=== PATIENT | male | born 1975 | race Caucasian/White ===

== ENCOUNTER 2016-10-07 17:37 | Emergency (ER) | payer MEDICAID, MEDICARE ==
[2016-10-07] MEDS ORDERED: Lidocaine 1% 20 ML MDV INJECT ONE ×2 (17:46)
[2016-10-07] MEDS ORDERED: Diphtheria,Pertussis(Acell),Tetanus Vaccine 0.5 ML Syringe IM ONE (17:46)
[2016-10-07] MEDS ORDERED: Bacitracin Oint 1 GM U/D Packet TOP ONE ×2 (17:46→17:47)
--- NOTE | 2016-10-07 17:48 | EDM.PDOC ---
ED HPI GENERAL MEDICAL PROBLEM - General Chief Complaint: Upper Extremity Injury/Pain Stated Complaint: LACERATION MIDDLE FINGER /RT HAND Time Seen by Provider: 10/07/16 17:41 - History of Present Illness INITIAL COMMENTS - FREE TEXT/NARRATIVE: HISTORY AND PHYSICAL: History of present illness: Patient is 41-year-old white male presents with concern of acute injury third digit of his right hand it occurred when he was working on his riding lawnmower he denies other trauma or cancer tetanus status is to be determined Review of systems: As per history of present illness and below otherwise all systems reviewed and negative. Past medical history: As per history of present illness and as reviewed below otherwise noncontributory. Surgical history: As per history of present illness and as reviewed below otherwise noncontributory. Social history: No reported history of drug or alcohol abuse. Family history: As per history of present illness and as reviewed below otherwise noncontributory. Physical exam: HEENT: Atraumatic, normocephalic, pupils reactive, negative for conjunctival pallor or scleral icterus, mucous membranes moist, throat clear, neck supple, nontender, trachea midline. Lungs: Clear to auscultation, breath sounds equal bilaterally, chest nontender. Heart: S1S2, regular, negative for clicks, rubs, or JVD. Abdomen: Soft, nondistended, nontender. Negative for masses or hepatosplenomegaly. Negative for costovertebral tenderness. Pelvis: Stable nontender. Genitourinary: Deferred. Rectal: Deferred. Extremities: Flap type laceration at distal aspect third digit right hand CMS and neurovascular exams unremarkable Neuro: Awake, alert, oriented. Cranial nerves II through XII unremarkable. Cerebellum unremarkable. Motor and sensory unremarkable throughout. Exam nonfocal. Diagnostics: None Therapeutics: Patient was anesthetized with 1% lidocaine without epinephrine wound was closed with 4-0 nylon interrupted sutures to close bacitracin was applied Impression: #1 flap type laceration third digit right hand Definitive disposition and diagnosis as appropriate pending reevaluation and review of above. Review of Systems - Review of Systems Review Of Systems: ROS reveals no pertinent complaints other than HPI. Trauma Exam - Physical Exam Exam: See Below (See dictation) Departure - Departure Time of Disposition: 17:46 Disposition: Home, Self-Care 01 Condition: good Clinical Impression: Laceration, Vasovagal episode - Discharge Information Forms: ED Department Discharge Additional Instructions: The following information is given to patients seen in the emergency department who are being discharged to home. This information is to outline your options for follow-up care. We provide all patients seen in our emergency department with a follow-up referral. The need for follow-up, as well as the timing and circumstances, are variable depending upon the specifics of your emergency department visit. If you don't have a primary care physician on staff, we will provide you with a referral. We always advise you to contact your personal physician following an emergency department visit to inform them of the circumstance of the visit and for follow-up with them and/or the need for any referrals to a consulting specialist. The emergency department will also refer you to a specialist when appropriate. This referral assures that you have the opportunity for followup care with a specialist. All of these measure are taken in an effort to provide you with optimal care, which includes your followup. Under all circumstances we always encourage you to contact your private physician who remains a resource for coordinating your care. When calling for followup care, please make the office aware that this follow-up is from your recent emergency room visit. If for any reason you are refused follow-up, please contact the [facility] emergency department at and asked to speak to the emergency department charge nurse. Wound check primary medical doctor followup 24-48 hours suture removal 10-14 days return as needed as discussed
[2016-10-07 18:12] VITALS: BP 94/51
== END 2016-10-07 18:34 | disposition home or self-care (01) ==
LOC: MW.ED 17:37
DX: S61.212A Laceration without foreign body of right middle finger without damage to nail, initial encounter (principal); R55 Syncope and collapse; W28.XXXA Contact with powered lawn mower, initial encounter
CPT/HCPCS: 12001; 90471; 90715; 99282; 99282-25

== ENCOUNTER 2023-09-16 07:45 | Emergency (ER) | payer SELFPAY ==
[2023-09-16] MEDS: Ketorolac 30 MG/ML SDV IVPUSH ONE (08:16)
[2023-09-16] MEDS: Sodium Chloride 0.9% 1,000 ML IV ONE (08:16)
[2023-09-16] MEDS: SUMAtriptan 6 MG/0.5 ML SDV SUBCUT ONE (08:16)
[2023-09-16] MEDS: Ondansetron 4 MG/2 ML SDV IVPUSH ONE (08:17)
[2023-09-16] MEDS: Sodium Chloride 0.9% 10 ML Syringe FLUSH PRN (08:17)
[2023-09-16] MEDS: Sodium Chloride 0.9% 2.5 ML Syringe FLUSH PRN (08:17)
[2023-09-16 09:23] VITALS: BP 138/89; PULSE 84
== END 2023-09-16 09:23 | disposition home or self-care (01) ==
LOC: MW.ED 07:45
DX: G43.909 Migraine, unspecified, not intractable, without status migrainosus (principal); Z79.899 Other long term (current) drug therapy; Z75.8 Other problems related to medical facilities and other health care
CPT/HCPCS: 96361; 96372; 96374; 96375; 99283; J1885; J2405; J3030; J3490; J7030

== ENCOUNTER 2024-05-07 13:15 | Emergency (ER) | payer SELFPAY ==
[2024-05-07 13:30] VITALS: BP 150/90; PULSE 73
== END 2024-05-07 13:41 | disposition home or self-care (01) ==
LOC: MW.ED 13:15
DX: Z76.0 Encounter for issue of repeat prescription (principal); Z90.49 Acquired absence of other specified parts of digestive tract; Z87.891 Personal history of nicotine dependence; Z79.899 Other long term (current) drug therapy
CPT/HCPCS: 99281